=== PATIENT | female | born 1975 | race African-American/Black ===

== ENCOUNTER 2017-08-26 08:18 | Emergency (ER) | payer OTHER ==
[2017-08-26 08:33] VITALS: BP 147/63; PULSE 55; TEMP 97.9; BMI 22.8
[2017-08-26] MEDS ORDERED: KETOROLAC TROMETHAMINE 60 MG/2 ML VIAL IM ONE (09:21)
[2017-08-26] MEDS ORDERED: CYCLOBENZAPRINE HCL 10 MG TABLET (FP) PO ONE (09:21)
--- NOTE | 2017-08-26 09:24 | PDOC ---
History of Present Illness - General Chief Complaint: Headache Stated Complaint: Headache Time Seen by Provider: 08/26/17 09:05 History Source: Patient Exam Limitations: No Limitations - History of Present Illness Initial Comments: 08/26/17 09:19 Patient came for another evaluation of severe neck and wraparound headache pain. pain is worse when she leans her head forward and moves it from [id number]. 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 has suffered from same for approximately 2 weeks, has seen her private physician who is prescribed her hypertension medication and amoxicillin for presumed sinusitis. Occurred: reports: last week Severity: reports: mild, moderate Pain Location: reports: neck Modifying Factors: improves with: None Loss of Consciousness: no loss of consciousness Associated Symptoms (Fall): headache, muscle spasms Past History - Travel Traveled outside of the country in the last 30 days: No Close contact w/someone who was outside of country & ill: No - Past Medical History Allergies/Adverse Reactions: Allergies Allergy/AdvReac Type Severity Reaction Status Date / Time No Known Allergies Allergy Verified 08/26/17 08:30 Home Medications: Ambulatory Orders Cyclobenzaprine HCl 10 mg PO Q8H PRN #14 tablet 08/26/17 Ibuprofen 600 mg PO Q6H PRN #30 tablet 08/26/17 COPD: No HTN: Yes Liver Disease: Yes (HEP B) - Suicide/Smoking/Psychosocial Hx Smoking History: Never smoked Trauma Specific PMHX - Complaint Specific PMHX Back Injury: No Neck Injury: No Review of Systems - Review of Systems Able to Perform ROS?: Yes Is the patient limited Pashto proficient: Yes Constitutional: Yes: Symptoms Reported, See HPI. No: Fever, Malaise HEENTM: No: Symptoms Reported Respiratory: Yes: See HPI. No: Symptoms reported Musculoskeletal: Yes: Symptoms Reported, See HPI, Muscle Pain, Muscle Weakness, Neck Pain All Other Systems: Reviewed and Negative *Physical Exam - Vital Signs Last Vital Signs Temp Pulse Resp BP Pulse Ox 97.9 F 55 L 17 147/63 100 08/26/17 08:30 08/26/17 08:30 08/26/17 08:30 08/26/17 08:30 08/26/17 08:30 - Physical Exam General Appearance: Yes: Nourished, Appropriately Dressed, Apparent Distress, Mild Distress, Moderate Distress HEENT: positive: LUIS M, Normal ENT Inspection, TMs Normal, Pharynx Normal. negative: Nasal Congestion, Rhinorrhea, Sinus Tenderness Neck: positive: Other (patient with tenderness and tense musculature bilaterally worse on the right than the left of sternocleidomastoid muscles and paravertebral spinous muscles. Can reproduce headache pain with pressure point of occiput and insertions of these muscles, can reproduce shoulder and neck tenderness/headache pain with pressure points at upper insertion of trapezius and distal sternocleidomastoid. Worse on the right than the left. C-spine tenderness, motion is mildly limited secondary to this pain. With forward flexion patient's frontal headache is reproduced, with pressure and forward flexion of head pain of this headache is worse and similar to what she has reported.). negative: Supple Respiratory/Chest: positive: Lungs Clear Musculoskeletal: positive: Normal Inspection, Muscle Spasm. negative: CVA Tenderness (L), Vertebral Tenderness Integumentary: positive: Normal Color, Dry, Warm. negative: Pale, Rash Neurologic: positive: behavioral science chair II-XII NML intact, Fully Oriented, Alert, Normal Mood/ Affect, Normal Response, Motor Strength 5/5 Progress Note - Progress Note Progress Note: tension headache, will treat with NSAIDs and cyclobenzaprine *DC/Admit/Observation/Transfer Diagnosis at time of Disposition: Cervical muscle strain Qualifiers: Encounter type: initial encounter Qualified Code(s): S16.1XXA - Strain of muscle, fascia and tendon at neck level, initial encounter - Discharge Dispostion Disposition: HOME Condition at time of disposition: Stable Admit: No - Prescriptions Prescriptions: Cyclobenzaprine HCl 10 mg PO Q8H PRN #14 tablet PRN Reason: spasm Ibuprofen 600 mg PO Q6H PRN #30 tablet PRN Reason: Pain - Referrals - Patient Instructions Printed Discharge Instructions: DI for Cervical Muscle Strain Additional Instructions: Rest, no heavy lifting or exercise until pain is resolved Hot soaks to neck and low back as often as possible/hot showers or Jacuzzis No massage or therapy until spasm is gone Continue ibuprofen 2-200 mg tablets every 6 hours for the next 3 days then as needed for pain and swelling Cyclobenzaprine 1-10mg every 8 hours as needed for spasm If not significant improvement within 24 hours with medication and rest regime, followup with private physician for change in medications and /or therapy. - Post Discharge Activity Forms/Work/School Notes: Back to Work
[2017-08-26] MEDS ORDERED: KETOROLAC TROMETHAMINE 60 MG/2 ML VIAL ONE (09:25)
[2017-08-26] MEDS ORDERED: CYCLOBENZAPRINE HCL 10 MG TABLET (FP) ONE (09:25)
== END 2017-08-26 09:31 | disposition home or self-care (01) ==
LOC: JERFT 08:18
PROC: 3E0233Z Introduction of Anti-inflammatory into Muscle, Percutaneous Approach (ICD-10-PCS; principal; 2017-08-26)
DX: S16.1XXA Strain of muscle, fascia and tendon at neck level, initial encounter (principal); X50.0XXA Overexertion from strenuous movement or load, initial encounter; Y93.F2 Activity, caregiving, lifting; Y92.89 Other specified places as the place of occurrence of the external cause; Y99.0 Civilian activity done for income or pay
CPT/HCPCS: 96372; 99281-25

== ENCOUNTER → 2018-04-03 | Day surgery (SDC) | payer OTHER ==
[2018-04-02 09:17] VITALS: BMI 24.2
[~2018-04-03] MED LIST: ACETAMINOPHEN 1000 MG/100 ML VIAL (NON FORMULARY) IVPB ONE; ACETAMINOPHEN INJECTION 100 ML IVPB ONE; BUPIVACAINE HCL/PF 0.5% (5MG/ML) 10 ML VIAL NR ONE; DEXAMETHASONE SOD PHOSPHATE 4 MG/1 ML VIAL ONE; GLYCOPYRROLATE 0.2 MG/1 ML VIAL ONE; IBUPROFEN 800 MG/8 ML IJ IVPB ONE; IBUPROFEN 800 MG/8 ML IJ IVPB PRN; LACTATED RINGERS SOLUTION 1,000 ML IV SCH; LIDOCAINE HCL/PF 2% SDV 5ML VIAL ONE; MIDAZOLAM HCL 2 MG/2 ML SINGLE DOSE VIAL ONE; NEOSTIGMINE METHYLSULFATE 0.5 MG/ML - 10 ML MDV ONE; ONDANSETRON 4 MG/2 ML VIAL IVPUSH PRN; ONDANSETRON 4 MG/2 ML VIAL ONE; PROPOFOL 20 ML ONE; ROCURONIUM BROMIDE 50 MG/5 ML VIAL ONE; ePHEDrine SULFATE 50 MG/1 ML AMPULE ONE; oxyCODONE HCL 5 MG TABLET ONE; oxyCODONE HCL 5 MG TABLET PO PRN
--- NOTE | 2018-04-03 13:09 | HP ---
History & Physical Update - History History: No Change - Physical Physical: No Change - Assessment Assessment: No Change - Plan Plan: No Change (H&P in chart from Dr. Coffman on 03/26/2018)
--- NOTE | 2018-04-03 14:44 | OP ---
Operative Note - Note: Operative Date: 04/03/18 Pre-Operative Diagnosis: umbilical hernia Operation: laparoscopic umbilical hernia repair with mesh Surgeon: Alexander Torres [employer] Planning: Elizabeth Arzola Anesthesiologist/EMERGING TECHNOLOGIES DIRECTOR: Rico Rachel Anesthesia: General Estimated Blood Loss (mls): 20 Fluid Volume Replaced (mls): 1,000 Operative Report Dictated: Yes
--- NOTE | 2018-04-03 14:45 | SURG ---
Surgery Library Circulation Clerk Note Library Circulation Clerk: Elizabeth Arzola PA-C Date of Service: 04/03/18 Diagnosis: umbilical hernia Procedure: laparoscopic umbilical hernia repair with mesh I was present for the entirety of the operative procedure. For further detail, please refer to operative report. Visit type - Case Type Case Type: Scheduled - Emergency Emergency Visit: No - New patient This patient is new to me today: Yes Date on this admission: 04/03/18
[2018-04-03 15:48] VITALS: TEMP 98.1
[2018-04-03 15:57] VITALS: BP 131/58; PULSE 52
--- NOTE | 2018-04-04 12:10 | OP ---
DATE OF OPERATION: 04/03/2018 SURGICAL ATTENDING: Noe Swift MD SURGICAL PHYSICIAN JACK STRIP ASSEMBLER: Elizabeth Arzola PREOPERATIVE DIAGNOSIS: Umbilical hernia. POSTOPERATIVE DIAGNOSIS: Umbilical hernia. ANESTHESIA: General endotracheal. PROCEDURE: Laparoscopic umbilical hernia repair with mesh. DESCRIPTION OF PROCEDURE: The patient was taken into the operating room, placed in a supine position, endotracheally intubated, prepped and draped in the usual sterile fashion. A right mid-lateral abdominal incision was made, 5 mm in length, and a 5-mm trocar was then placed with an Optiview port. The abdomen was then insufflated and examined, and no injury was found. Two other incisions above and below the initial incision were then made, and 5-mm trocars were placed. Examination revealed normal abdomen with a 1-cm umbilical hernia. There was nothing incarcerated in the hernia. A mesh was then measured, 9 cm in diameter. Four sutures were placed at 4 corners, and then, it was rolled up and tied and inserted through the right upper abdominal port. This was done under direct vision. The tie was then cut, and the mesh unfurled. The 4 sutures were then pulled out through 4 corners of the abdominal wall, 5 cm from the center of the umbilicus, and tied. ProTacks were then used to affix the mesh to the anterior abdominal wall between the sutures. Upon final examination, the mesh was in excellent position. Hemostasis was assured. The abdomen was then desufflated, and all trocars were removed. The skin incisions were closed with Monocryl and Dermabond. Sterile dressings were placed. The patient was then awakened, extubated, and taken to recovery in stable condition. Dr. Swift, the attending surgeon, was present throughout the entire procedure. NOE SWIFT M.D. [id number]
== END | disposition home or self-care (01) ==
LOC: JASU-SURG 05:10
PROVIDERS: ATTEND Surgery
PROC: 0WUF4JZ Supplement Abdominal Wall with Synthetic Substitute, Percutaneous Endoscopic Approach (ICD-10-PCS; principal; 2018-04-03 11:00)
DX: K42.9 Umbilical hernia without obstruction or gangrene (principal)
CPT/HCPCS: 84703; 94760; J0131